=== PATIENT | male | born 1960 | race Caucasian/White ===

== ENCOUNTER 2017-01-11 08:25 | Day surgery (SDC) | payer BC, OTHER ==
[~2017-01-11 08:25] MED LIST: Lactated Ringers 1,000 ML IV SCH
[2017-01-11] MEDS ORDERED: Propofol 200 MG/20 ML SDV ONE (09:06)
[2017-01-11] MEDS ORDERED: fentaNYL 100 MCG/2 ML SDV ONE (09:06)
[2017-01-11 11:16] VITALS: BP 102/64
--- NOTE | 2017-01-11 14:26 | OR ---
PREOPERATIVE DIAGNOSIS: History of polyps. POSTOPERATIVE DIAGNOSIS: Normal colonoscopic exam. PROCEDURE PROPOSED/PROCEDURE DONE: Total flexible colonoscopy. INDICATION: This is a 56-year-old gentleman who had a previous colonoscopy about 7 years ago and was found to have some polyps. He was recommended to have a followup exam. He comes in now for repeat examination. TECHNIQUE: The patient was brought to the endoscopy suite and placed in a left lateral decubitus position. He was sedated per [employer] with propofol. The flexible video colonoscope was then passed transanally and under visualization, advanced to the cecum. Examination revealed a normal ascending, transverse, descending, sigmoid, and rectal colon. There was no evidence of any polyps, diverticulosis, colitis, or any other abnormalities. The scope was then withdrawn. The patient tolerated the procedure well. FINAL IMPRESSION: 1. Essentially normal colonoscopic exam. 2. History of prior polyps. PLAN: I feel he should continue with colonic surveillance every 5 years hereafter due to his personal history of polyps. SCM: 01/11/2017 10:28:01 MODL: 01/11/2017 14:14:14 /[id number]
== END 2017-01-11 11:25 | disposition home or self-care (01) ==
LOC: VM.SDS 08:25
PROVIDERS: ATTEND Surgery
DX: Z12.11 Encounter for screening for malignant neoplasm of colon (principal); Z86.010 Personal history of colon polyps; Z90.49 Acquired absence of other specified parts of digestive tract; Z98.890 Other specified postprocedural states; Z79.82 Long term (current) use of aspirin; Z79.899 Other long term (current) drug therapy; Z87.891 Personal history of nicotine dependence; Z72.0 Tobacco use
CPT/HCPCS: 45378; J2704; J3010; J7120

== ENCOUNTER 2021-12-31 10:54 | Day surgery (SDC) | payer OTHER ==
[2021-12-31] MEDS ORDERED: Propofol 200 MG/20 ML SDV ONE ×2 (12:09→13:34)
[2021-12-31] MEDS ORDERED: fentaNYL 100 MCG/2 ML SDV ONE ×2 (12:09→13:34)
[2021-12-31 14:30] VITALS: BP 104/70; PULSE 66
== END 2021-12-31 15:20 | disposition home or self-care (01) ==
LOC: VM.SDS 10:54
PROVIDERS: ATTEND Family Medicine
DX: Z12.11 Encounter for screening for malignant neoplasm of colon (principal); K57.30 Diverticulosis of large intestine without perforation or abscess without bleeding; G47.33 Obstructive sleep apnea (adult) (pediatric); F41.9 Anxiety disorder, unspecified; Z79.899 Other long term (current) drug therapy; Z86.010 Personal history of colon polyps; Z80.0 Family history of malignant neoplasm of digestive organs; Z90.49 Acquired absence of other specified parts of digestive tract; Z98.890 Other specified postprocedural states; Z87.891 Personal history of nicotine dependence
CPT/HCPCS: 00812; J2704; J3010; J7120